=== PATIENT | male | born 1950 | race Caucasian/White ===

== ENCOUNTER 2016-11-26 10:00 | Inpatient (IN) | payer OTHER ==
[2016-12-10] MEDS ORDERED: LIDOCAINE 1% 5 ML SDV ID PRN (08:39)
[2016-12-10] MEDS ORDERED: LR 1,000 ML IV ONE (08:39)
[2016-12-10] MEDS ORDERED: ROPI/epiNEPH/KETOROLAC/morphINE JOINT COCKTAIL IU ONE (09:00)
[2016-12-10] MEDS ORDERED: CEFAZOLIN 2 GM/DEXTR 100 ML IV ONE (09:00)
[2016-12-10] MEDS ORDERED: FAMOTIDINE 20 MG TAB PO ONE (09:00)
[2016-12-10] MEDS ORDERED: ACETAMINOPHEN 325 MG TAB PO ONE (09:00)
[2016-12-10] MEDS ORDERED: CHLORHEXIDINE GLUC HIBICLENS 118 ML BTL TP ONE (09:00)
[2016-12-10] MEDS ORDERED: BUPIVACAINE/EPI 0.5% 30 ML SDV ONE (10:03)
[2016-12-10] MEDS ORDERED: THROMBIN (BOVINE) 5,000 UNIT VIAL TP ONE (10:03)
[2016-12-10] MEDS ORDERED: CALCIUM CHLORIDE 1 GM/10 ML INJ ONE (10:03)
[2016-12-10] MEDS ORDERED: BACITRACIN 50,000 UNITS/10 ML SYR IRR ONE (10:04)
[2016-12-10] MEDS ORDERED: POLYMYXIN B SULFATE 500,000 UNIT/10 ML SYR IRR ONE (10:04)
[2016-12-10] MEDS ORDERED: MIDAZOLAM 2 MG/2 ML VIAL ONE (10:05)
[2016-12-10] MEDS ORDERED: fentaNYL 100 MCG/2 ML INJ ONE (10:08)
[2016-12-10] MEDS ORDERED: PROPOFOL 200 MG/20 ML VIAL ONE ×3 (10:41→11:25)
[2016-12-10] MEDS ORDERED: PROMETHAZINE HCL 25 MG SUPPR PR PRN (12:52)
[2016-12-10] MEDS ORDERED: POLYETHYLENE GLYCOL 3350 17 GM PKT PO PRN (12:52)
[2016-12-10] MEDS ORDERED: DIPHENOXYLATE/ATROPINE LOMOTIL 1 TAB PO PRN (12:52)
[2016-12-10] MEDS ORDERED: PHARMACY PAIN CONSULT 1 EA MISC PRN (12:52)
[2016-12-10] MEDS ORDERED: ONDANSETRON 4 MG/2 ML VIAL IVP PRN (12:52)
[2016-12-10] MEDS ORDERED: TEMAZEPAM 15 MG CAP PO PRN (12:52)
[2016-12-10] MEDS ORDERED: CYCLOBENZAPRINE 10 MG TAB PO PRN (12:52)
[2016-12-10] MEDS ORDERED: TAPENTADOL HCL 50 MG TAB PO PRN (12:52)
[2016-12-10] MEDS ORDERED: LACTULOSE 20 GM/30 ML UDCUP PO PRN (12:52)
[2016-12-10] MEDS ORDERED: METOCLOPRAMIDE 10 MG/2 ML VIAL IVP PRN (12:52)
[2016-12-10] MEDS ORDERED: BISACODYL 10 MG SUPP PR PRN (12:52)
[2016-12-10] MEDS ORDERED: oxyCODONE IR 5 MG TAB PO PRN (12:52)
[2016-12-10] MEDS ORDERED: MAGNESIUM HYDROXIDE 30 ML UDCUP PO PRN (12:52)
[2016-12-10] MEDS ORDERED: ONDANSETRON DISINTEGRATING 4 MG TAB PO PRN (12:52)
[2016-12-10] MEDS ORDERED: diphenhydrAMINE 25 MG CAP PO PRN (12:52)
--- NOTE | 2016-12-10 12:52 | POSTOPPROG ---
Post Op Note Date of Operation: 12/10/16 Surgeon: Su Sweeney Chief Engineering Division: [employer] Anesthesia: Epidural Pre-op Diagnosis: l hip oa Procedure: l bren with fluoro Inf/Abcess present in the surg proc area at time of surgery?: Yes Depth: Deep Incisional (Fascial) EBL: 500-1000
[2016-12-10 13:50] VITALS: RESP 16
[2016-12-10] MEDS: LR 1,000 ML IV SCH (14:18)
--- NOTE | 2016-12-10 14:36 | GOP ---
[f rep st] OPERATIVE REPORT DATE OF OPERATION: 12/10/2016 SURGEON: Su Sweeney MD WET MIXER: Aleksandar Rainey, CSFA, LSA, whose presence was medically necessary. ANESTHESIA: Epidural with sedation. PREOPERATIVE DIAGNOSIS: Left hip osteoarthritis. POSTOPERATIVE DIAGNOSIS: Left hip osteoarthritis. PROCEDURE PERFORMED: Left total hip arthroplasty with fluoroscopy. FINDINGS: INDICATIONS: This is a 65-year-old male with a several-month history of left hip pain worsening wit h use, and with time. X-ray exam reveals [id number] osteoarthritic changes with dysplasia. He wi shes to have surgery in order to resolve the problem. DESCRIPTION OF PROCEDURE: Patient brought to the operating room after the left side had been identi fied as the correct side by the patient, nurse, and physician. Once in the operating room, he was g iven an epidural nerve block. He was then placed supine on a fracture table with a well-padded nba alf post, and both legs placed in appropriate leg holders. Fluoroscopy was used to ensure proper p ositioning of the pelvis, and the the legs. Once this was ensured, the left hip and flan k were sterilely prepped and draped in the usual fashion using GSI solution. Once prepped and drape d, incision was made starting 2 cm lateral and inferior to the ASIS and heading in a 15-degree poste rior direction with sharp dissection carried down through the skin and subcutaneous layers with blee ding controlled using electrocautery. The fascia overlying the TFL was identified and was cut in li ne with its fibers, with the muscle belly retracted medially. Dissection of the base of the fascial sheath revealed the circumflex vessels, which were also cauterized. Deeper dissection was carried down onto the femoral neck, which was covered up by very muscular vastus lateralis. Blunt Cobra was placed in the superior and inferior portion of the femoral neck with the anterior portion of the ca psule removed in order to aid in visualization and retraction since his quadriceps was so large. On ce exposed, oscillating saw was used to cut across the femoral neck just above the intertrochanteric line. Osteotome was used to finish the cut. The leg was externally rotated to 40 degrees, and a c orkscrew was drilled into the femoral head. The femoral head was easily removed. Once it was remov ed, the pulvinar and labrum were removed from the outer portion of the acetabulum. The head was lesly sured to be 58 mm in diameter. Therefore, a 55 mm reamer was started in order to gain some bleeding bone extended all way up to 59 mm secondary to the dysplasia that he had, making it difficult to ge t a concentric joint. Once there was bleeding bone, trial was noted to fit securely, the refore, a size 60 sector cup from [place] was put into place with a screw placed in superior and pos terior portions of the shell. Once in place, a manhole cover was placed at its base. Its position had been checked under fluoroscopy multiple times, and a 60 x 32 ceramic shell was placed in the bailey tabular cup. Once it was noted to fit securely, attention was turned to the femur, which was lidding machine operator ally rotated 90 degrees. Soft tissue dissection was done around the anterior portion of the femoral neck, on the superior portion of femoral neck, extending toward the greater trochanter. Once the c apsule had been adequately released, it was able to be dropped into extension, and adduction with a curette used to remove the medullary bone from the proximal portion of the femur, and a rongeur used to used to remove the superior portion of the femoral neck. Canal finder was placed in the femoral canal. Sequential broaches were used up to size 6, which was noted to fit securely. A trial reduc tion was performed. Fluoroscopy was able to show adequate fill of the proximal femur with a size 6 stem and good leg length with 127-degree neck. Therefore, the hip was re-dislocated, placed in exte nsion and adduction. The trial was removed, and a size 6 Accolade II 127-degree stem from [place] w as put into place, noted to fit securely. Another reduction was then done with a 0 head to ensure p colin lengthening. Once this was ensured, the leg was re-dislocated. The trunnion was washed and d ried, and a 32+ 0 ceramic head was put into place. Once noted to fit securely, hip was reduced. Dia int cocktail was injected around the acetabulum and posterior capsule and the proximal femur. Plasm a gel was injected into the intra-articular portion of the hip. Fascia was closed overlying the TFL using 0 Vicryl suture in a running whipstitch with plasma gel placed within the TFL sheath. 0 Vicr yl and 2-0 Vicryl suture was used to close the subcutaneous layers with 30 cc of Marcaine infused ar ound the skin itself, and a 3-0 V-Loc suture in a running subcuticular stitch was used to close the skin. The wound was dressed with Steri-Strips, Xeroform, 4 x 4, and Tegaderm. He was completely un draped in the operating room, had his legs taken out of the leg mackey. Perineal post was removed. His leg lengths were checked and were noted to be equal. He was then transferred onto a stretcher, and sent to recovery room in good condition. /[id number]/MODL
[2016-12-10] MEDS: ACETAMINOPHEN 325 MG TAB PO SCH ×2 (17:29→23:56)
[2016-12-10] MEDS: traMADol 50 MG TAB PO SCH ×2 (17:29→23:56)
[2016-12-10] MEDS: ceFAZolin 2 GM/DEXTROSE 100 ML IV SCH (17:30)
[2016-12-10] MEDS: KETOROLAC 30 MG/1 ML SDV IVP SCH ×2 (17:30→23:58)
[2016-12-10] MEDS: SENNOSIDES/DOCUSATE SODIUM TAB PO SCH (23:56)
[2016-12-10] MEDS: FAMOTIDINE 20 MG TAB PO SCH (23:58)
[2016-12-11] MEDS: LR 1,000 ML IV SCH ×2 (00:04→08:24)
[2016-12-11] MEDS: ceFAZolin 2 GM/DEXTROSE 100 ML IV SCH (01:22)
[2016-12-11] MEDS: KETOROLAC 30 MG/1 ML SDV IVP SCH ×2 (05:46→11:56)
[2016-12-11] MEDS: ACETAMINOPHEN 325 MG TAB PO SCH ×2 (05:47→11:56)
[2016-12-11] MEDS: traMADol 50 MG TAB PO SCH ×2 (05:47→11:25)
[2016-12-11] MEDS: SENNOSIDES/DOCUSATE SODIUM TAB PO SCH (08:27)
[2016-12-11] MEDS: FAMOTIDINE 20 MG TAB PO SCH (08:27)
[2016-12-11 08:40] VITALS: PULSE 86; TEMP 98.2; O2SAT 94
[2016-12-11] MEDS ORDERED: RIVAROXABAN 10 MG TAB PO SCH (09:00)
[2016-12-11 09:31] LABS: HEMATOCRIT 30.2 % (40.0-51.0); HEMOGLOBIN 10.2 g/dL (13.7-17.5)
--- NOTE | 2016-12-11 10:33 | SOAPPROG ---
[facility] Progress Note Assessment/Plan: Assessment: Plan: -d/c home today with PT 12/11/16 10:32 Subjective: Doing well, had a couple of episodes of syncope yesterday, none today Objective: Vital Signs Temp Pulse Resp BP Pulse Ox 36.8 C 86 16 121/68 H 94 12/11/16 08:00 12/11/16 08:00 12/11/16 08:00 12/11/16 08:00 12/11/16 08:00 Laboratory Results 12/11/16 08:26 12/10/16 12/11/16 12/12/16 05:59 05:59 05:59 Intake Total 3942 Output Total 500 500 Balance 3442 -500 Wound has some mild bleeding, bruising around the incision, Calf is NT, NVI - Time Spent With Patient Time Spent With Patient: 15 - Pending Discharge Pending Discharge Within 24 Hours: Yes Pending Discharge Within 48 Hours: No Pending Discharge Date: 12/12/16 Pending Discharge Time: 11:00 ICD10 Worksheet Patient Problems: Problems Problem Status Onset Arthritis of left hip Acute - ICD10 Problem Qualifiers (1) Arthritis of left hip
--- NOTE | 2016-12-11 10:35 | PDIAF ---
- Diagnosis Code Status: Full Code - Medication Management Discharge Medications: Medications to Continue on Transfer Tadalafil [Cialis] 20 mg PO DAILY PRN 11/15/16 [Last Taken 12/05/16] Rivaroxaban [Xarelto 10mg (*)] 10 mg PO DAILY #0 tab 12/11/16 [Last Taken Unknown] Discharge Medications: Refer to the Discharge Home Medication list for PRN reason. PICC Care - Routine: N/A - Orders Services needed: Physical Therapy Diet Recommendation: no restrictions on diet Diet Texture: Regular Texture Diet - Follow Up Care Current Providers and Referrals: WARNER GIBSON [Primary Care Provider] -
[2016-12-11 13:24] VITALS: BP 110/58
== END 2016-12-11 13:24 | disposition home or self-care (01) | DRG 470 ==
LOC: F3E 12-10 07:58 → F3N 12-10 13:41
PROVIDERS: ADMIT Orthopaedic Surgery; ATTEND Orthopaedic Surgery
PROC: 0SRB04Z Replacement of Left Hip Joint with Ceramic on Polyethylene Synthetic Substitute, Open Approach (ICD-10-PCS; principal; 2016-12-10 09:30)
DX: M16.12 Unilateral primary osteoarthritis, left hip (principal); R55 Syncope and collapse
CPT/HCPCS: 97110-GP; 97116-GP; 97161-GP; 97165-GO; 97530-GP; 97535-GO; C1713; G8978-GP-CJ; G8979-GP-CI; G8980-GP-CI; G8987-GO-CI; G8988-GO-CI; G8989-GO-CI; J0171; J0690; J1885; J2250; J2704; J2795; J3010